=== PATIENT | male | born 1990 | race Caucasian/White ===

== ENCOUNTER 2018-05-19 19:42 | Inpatient (IN) | payer BC ==
[~2018-05-19 19:42] MED LIST: DEXAMETHASONE SOD PHOSPHATE INJ 4 MG/1 ML VIAL ONE; GLYCOPYRROLATE 1 MG/5 ML SYRINGE ONE; NEOSTIGMINE METHYLSULFATE 10 MG/10 ML VIAL ONE; ONDANSETRON HCL INJ/PF 4 MG/2 ML SDV ONE
[2018-05-19] MEDS ORDERED: NORMAL SALINE 1000 ML 1,000 ML IV ONE (20:19)
[2018-05-19 20:49] LABS: ABSOLUTE LYMPHOCYTES (AUTO) 0.7 10^3/uL (0.5-4.7); ABSOLUTE MONOCYTES (AUTO) 0.2 10^3/uL (0.1-1.4); ABSOLUTE NEUT (AUTO) 3.2 10^3/uL (1.7-8.2); BASOPHILS % (AUTO) 0.5 % (0-2); EOSINOPHILS % (AUTO) 0.7 % (0-6); HEMATOCRIT 43.3 % (37.9-51.0); LYMPHOCYTES % (AUTO) 17.3 % (13-45); MEAN CORPUSCULAR HEMOGLOBIN 33.9 pg (27.0-33.4); MEAN CORPUSCULAR HGB CONC 34.6 g/dL (32.0-36.0); MEAN CORPUSCULAR VOLUME 98 fl (80-97); MONOCYTES % (AUTO) 4.6 % (3-13); PLATELET COUNT 346 10^3/uL (150-450); RED BLOOD COUNT 4.43 10^6/uL (4.35-5.55); RED CELL DISTRIBUTION WIDTH 12.6 % (11.5-14.0); SEGMENTED NEUTROPHILS % (AUTO) 76.9 % (42-78); TOTAL CELLS COUNTED % (AUTO) 100 %; WHITE BLOOD COUNT 4.2 10^3/uL (4.0-10.5)
[2018-05-19] MEDS ORDERED: MORPHINE SULFATE 10 MG/ML INJ IV PRN (21:04)
[2018-05-19] MEDS ORDERED: FAMOTIDINE 20 MG TABLET PO ONE (21:05)
[2018-05-19] MEDS ORDERED: LIDOCAINE 2% VISCOUS SOLN 20 ML UDCUP PO ONE (21:05)
[2018-05-19] MEDS ORDERED: MAG HYDROX/AL HYDROX/SIMETH SUSP 30 ML UDCUP PO ONE (21:05)
[2018-05-19] MEDS ORDERED: METOCLOPRAMIDE HCL ORAL SOLN 10 MG/10 ML UDCUP PO ONE (21:05)
[2018-05-19] MEDS ORDERED: METOCLOPRAMIDE HCL INJ/PF 10 MG/2 ML SDV IV ONE (21:05)
[2018-05-19 21:06] LABS: ALANINE AMINOTRANSFERASE 34 U/L (21-72); ALBUMIN 4.7 g/dL (3.5-5.0); ALKALINE PHOSPHATASE 54 U/L (38-126); ANION GAP 14 (5-19); ASPARTATE AMINO TRANSFERASE 39 U/L (17-59); BILIRUBIN,DIRECT 0.4 mg/dL (0.0-0.4); BILIRUBIN,TOTAL 0.5 mg/dL (0.2-1.3); BLOOD UREA NITROGEN 21 mg/dL (7-20); CALCIUM 9.8 mg/dL (8.4-10.2); CARBON DIOXIDE 21 mmol/L (22-30); CHLORIDE 109 mmol/L (98-107); CREATINE KINASE 401 U/L (55-170); GLUCOSE 124 mg/dL (75-110); LIPASE 114.6 U/L (23-300); POTASSIUM 3.8 mmol/L (3.6-5.0); SODIUM 143.6 mmol/L (137-145); TOTAL PROTEIN 7.3 g/dL (6.3-8.2)
--- NOTE | 2018-05-19 21:07 | ER Document Report ---
ED General - General Chief Complaint: Chest Pain Stated Complaint: CHEST PAIN Time Seen by Provider: 05/19/18 20:18 Notes: Patient is a 27-year-old male with a past medical history of chronic low back pain, currently takes approximately 3000 mg of ibuprofen daily for at least the past 3-4 months for low back pain who presents with acute onset of severe, generalized abdominal pain. The patient reports that this pain started abruptly several hours prior to arrival and has been getting progressively worse since that time. Any movement or touching the area worsens the pain. Nothing improves the pain. He denies any history of similar symptoms in the past. He has not seen his general doctor regarding today's concerns. He notes that he has been nauseated but has not vomited. He denies any melanotic stools. History is otherwise limited secondary to the patient's degree of pain. - Related Data Allergies/Adverse Reactions: No Known Allergies Allergy (Unverified 05/20/18 02:01) Past Medical History - General Information source: Patient - Social History Smoking Status: Never Smoker Frequency of alcohol use: Occasional Drug Abuse: None Lives with: Spouse/Significant other Family History: Reviewed & Not Pertinent Review of Systems - Review of Systems Notes: Constitutional: Negative for fever. HENT: Negative for sore throat. Eyes: Negative for visual changes. Cardiovascular: Negative for chest pain. Respiratory: Negative for shortness of breath. Gastrointestinal: Positive for abdominal pain and vomiting Genitourinary: Negative for dysuria. Musculoskeletal: Negative for back pain. Skin: Negative for rash. Neurological: Negative for headaches, weakness or numbness. 10 point ROS negative except as marked above and in HPI. Physical Exam - Vital signs Vitals: Temp Pulse Resp BP Pulse Ox 97.6 F 68 16 131/82 H 100 05/19/18 20:10 05/19/18 20:10 05/19/18 20:10 05/19/18 20:10 05/19/18 20:10 Interpretation: Normal Notes: PHYSICAL EXAMINATION: GENERAL: Appears to be in significant pain HEAD: Atraumatic, normocephalic. EYES: Pupils equal round and reactive to light, extraocular movements intact, sclera anicteric, conjunctiva are normal. ENT: nares patent, oropharynx clear without exudates. Moist mucous membranes. NECK: Normal range of motion, supple without lymphadenopathy LUNGS: Breath sounds clear to auscultation bilaterally and equal. No wheezes rales or rhonchi. HEART: Regular rate and rhythm without murmurs ABDOMEN: Firm, rigid abdomen. Diffuse, severe tenderness to palpation with involuntary guarding EXTREMITIES: Normal range of motion, no pitting or edema. No cyanosis. NEUROLOGICAL: No focal neurological deficits. Moves all extremities spontaneously and on command. PSYCH: Anxious, somewhat hostile demeanor SKIN: Warm, Dry, normal turgor, no rashes or lesions noted. Course - Re-evaluation Re-evalutation: 05/19/18 21:06 Patient presents complaining of generalized abdominal pain, nausea, no vomiting. Abdominal exam is somewhat limited as patient has severe tenderness with involuntary guarding in all locations but the initial exam is worrisome for an acute abdomen. His vitals are otherwise within normal limits, initial labs are noted to be unremarkable. The patient does take over 3000 mg of ibuprofen every day and has been doing so for months. He denies any recent melanotic stools. A consideration would certainly be possible perforated viscus given his degree of abdominal pain and the acute onset of his symptoms. Alternative consideration could be a severe gastritis or duodenitis although it would be unusual the patient have such significant generalized abdominal tenderness. Will proceed with an acute abdominal series initially to evaluate for any evidence of perforation, bedside ultrasound, pain control and reassess the patient. 05/19/18 21:43 Acute abdominal series does show free air in the abdomen extraordinarily concerning for a perforated viscus. I immediately contacted Dr. Varela the surgeon bloom conveyor operator who will come to the bedside and plans to take patient to the operating room. He has been made n.p.o., IV Zosyn has been initiated, IV fluids and morphine for pain control. I have updated the patient and his family at the bedside and have reviewed the radiographic images with him and explained the implications of this diagnosis. 05/19/18 22:29 Patient continues to have significant pain. Dr. Davis has evaluated and will take to the operating room. Patient has received a total of 12 mg of morphine without significant relief. Will give 1 mg of hydromorphone at this time point. He remains hemodynamically within normal limits all his abdominal exam remains rigid 05/19/18 23:21 Patient's pain is much improved. He is going to the operating room at this time point 05/20/18 02:33 - Vital Signs Vital signs: Temp Pulse Resp BP Pulse Ox 98.1 F 88 16 144/91 H 100 05/20/18 01:27 05/20/18 01:27 05/20/18 01:27 05/20/18 01:27 05/20/18 01:27 - Laboratory Result Diagrams: 05/19/18 20:34 05/19/18 20:34 Laboratory results interpreted by me: 05/19/18 05/19/18 20:34 20:34 MCV 98 H MCH 33.9 H Chloride 109 H Carbon Dioxide 21 L BUN 21 H Glucose 124 H Creatine Kinase 401 H - Diagnostic Test Radiology reviewed: Image reviewed, Reports reviewed Radiology results interpreted by me: 05/19/18 21:43 Acute abdominal series: Free air in the abdomen Critical Care Note - Critical Care Note Total time excluding time spent on procedures (mins): 36 Comments: Critical care time spent obtaining history from patient or surrogate, discussions with consultants, development of treatment plan with patient or surrogate, evaluation of patient's response to treatment, examination of patient , ordering and performing treatments and interventions, ordering and review of laboratory studies, re-evaluation of patient's condition, ordering and review of radiographic studies and review of old charts Discharge - Discharge Clinical Impression: Perforated viscus, Free intraperitoneal air, Nausea, Acute abdomen Condition: Critical Disposition: ADMITTED INPATIENT Admitting Provider: Surgicalist Unit Admitted: OR
[2018-05-19] MEDS ORDERED: PIPERACILLIN/TAZOBACTAM 3.375 GM VIAL IV ONE (21:38)
[2018-05-19] MEDS ORDERED: MORPHINE SULFATE 10 MG/ML INJ IV ONE (21:57)
--- NOTE | 2018-05-19 22:20 | RADIOLOGY REPORT (SQ) ---
EXAM DESCRIPTION: ACUTE ABDOMEN SERIES COMPLETED DATE/TIME: 05/19/2018 9:43 pm REASON FOR STUDY: abdominal pain, possible perforation . History of NSAIDS use. COMPARISON: None. NUMBER OF VIEWS: Three views. TECHNIQUE: Frontal chest, supine abdomen and upright/decubitus abdomen radiographic images acquired. LIMITATIONS: None. FINDINGS: CHEST: No consolidation, pleural effusion or pneumothorax. Radiopaque piercing noted at t he bilateral nipple regions. FREE AIR: Linear lucencies under the diaphragm, suggestive of small pneumoperitoneum. BOWEL GAS PATTERN: Nonobstructive pattern. No dilated loops or air fluid levels. CALCIFICATIONS: No suspicious calcifications. HARDWARE: None in the abdomen. SOFT TISSUES: No gross mass or suggestion of organomegaly. BONES: No acute findings. IMPRESSION: 1. Nonobstructive bowel gas pattern. 2. Small pneumoperitoneum. COMMENT: Pertinent positive or negative findings of the imaging study reported as a CRITICAL EXAM to MONY Spring, at22:18 hours on 05/19/2018.Category of Critical Exam: Pneumoperitoneum. TECHNICAL DOCUMENTATION: JOB ID: [id number] [employer]- All Rights Reserved Reading location - IP/workstation name: [email or web address]
[2018-05-19] MEDS ORDERED: HYDROMORPHONE HCL INJ/PF 2 MG/ML AMPULE IV PRN (22:29)
[2018-05-19] MEDS ORDERED: HYDROMORPHONE HCL INJ/PF 2 MG/ML AMPULE ONE (22:31)
--- NOTE | 2018-05-19 22:44 | PDOC H&P ---
History of Present Illness Admission Date/PCP: 05/19/18 21:57 Patient complains of: severe abdominal pains History of Present Illness: JAZMIN DOWNEY is a 27 year old male who c/o severe abdominal pains at around 4 pm today. Has associated nausea. Obstruction series in the ED showed free air under the diaphragm. Has been taking at least 3 gms Ibuprofen for about 4-5 months for back pains. Past Surgical History Past Surgical History: Reports: Orthopedic Surgery - back surgery Social History Smoking Status: Unknown if Ever Smoked Family History Parental Family History Reviewed: Yes Children Family History Reviewed: No Sibling(s) Family History Reviewed.: No Review of Systems Constitutional: PRESENT: fever(s) Eyes: PRESENT: other - no visual/hearing changes Cardiovascular: PRESENT: other - no chest pains/cough Gastrointestinal: PRESENT: abdominal pain, nausea Genitourinary: PRESENT: other - no dysuria Musculoskeletal: PRESENT: back pain Neurological: PRESENT: other - no seizure Psychiatric: PRESENT: anxiety Hematologic/Lymphatic: PRESENT: other - no easy bruising Physical Exam Vital Signs: Temp Pulse Resp BP Pulse Ox 97.6 F 68 16 131/82 H 100 05/19/18 20:10 05/19/18 20:10 05/19/18 20:10 05/19/18 20:10 05/19/18 20:10 General appearance: PRESENT: severe distress Head exam: PRESENT: atraumatic Eye exam: PRESENT: conjunctiva pink Mouth exam: PRESENT: dry mucosa Neck exam: PRESENT: full ROM Respiratory exam: PRESENT: clear to auscultation jennifer Cardiovascular exam: PRESENT: tachycardia Pulses: PRESENT: normal radial pulses Vascular exam: PRESENT: normal capillary refill GI/Abdominal exam: PRESENT: firm, guarding, tenderness Rectal exam: PRESENT: deferred Extremities exam: PRESENT: full ROM Musculoskeletal exam: PRESENT: ambulatory Neurological exam: PRESENT: alert, oriented to person, oriented to place, oriented to time, oriented to situation Psychiatric exam: PRESENT: anxious Skin exam: PRESENT: normal color, warm Results Impressions: Acute Abdomen Series 05/19/18 21:03 IMPRESSION: 1. Nonobstructive bowel gas pattern. 2. Small pneumoperitoneum. Assessment & Plan - Time Time Spent: 30 to 50 Minutes - Inpatient Certification Medical Necessity: Need Close Monitoring Due to Risk of Patient Decompensation, Need For IV Fluids, Need for Pain Control, Need for IV Antibiotics, Need for Surgery, Risk of Complication if Not Cared For in Hospital - Plan Summary Plan Summary: HYdrate IV antibiotics To OR for explore lap and repair of perforation DAREN
[2018-05-19] MEDS ORDERED: HYDROMORPHONE HCL INJ/PF 2 MG/ML AMPULE IV ONE (22:47)
[2018-05-19] MEDS ORDERED: FENTANYL CITRATE INJ/PF 100 MCG/2 ML AMPUL ONE ×2 (23:04)
[2018-05-19] MEDS ORDERED: MIDAZOLAM 2 MG/2 ML INJ ONE (23:04)
[2018-05-19] MEDS ORDERED: EPHEDRINE SULFATE INJ 50 MG/1 ML AMPULE ONE (23:05)
[2018-05-19] MEDS ORDERED: ACETAMINOPHEN 1,000 MG/100 ML RTUPB IV ONE (23:05)
[2018-05-19] MEDS ORDERED: PROPOFOL INJ 200 MG/20 ML VIAL IV ONE (23:05)
[2018-05-19] MEDS ORDERED: MORPHINE SULFATE 10 MG/ML INJ ONE (23:06)
[2018-05-20] MEDS ORDERED: DIPHENHYDRAMINE HCL 50 MG/ML VIAL IV PRN (00:46)
[2018-05-20] MEDS ORDERED: PROMETHAZINE HCL INJ 25 MG/1 ML VIAL IV PRN (00:46)
[2018-05-20] MEDS ORDERED: FENTANYL CITRATE INJ/PF 100 MCG/2 ML AMPUL IV PRN ×3 (00:46)
[2018-05-20] MEDS ORDERED: MEPERIDINE HCL/PF INJ 25 MG/1 ML DISP.SYRIN IV PRN (00:46)
[2018-05-20] MEDS ORDERED: ONDANSETRON HCL INJ/PF 4 MG/2 ML SDV IV PRN (01:27)
[2018-05-20] MEDS ORDERED: DEXTROSE 50%-WATER 25 GM/50 ML DISP.SYRIN IV PRN ×2 (01:27)
[2018-05-20] MEDS ORDERED: DEXTROSE 40% GEL 15 GM TUBE PO PRN ×2 (01:27)
[2018-05-20] MEDS ORDERED: GLUCAGON,HUMAN RECOMB 1 MG INJ SUBCUT PRN (01:27)
[2018-05-20] MEDS ORDERED: PHARMACY COMMUNICATION ORDER MC NR (01:30)
[2018-05-20] MEDS ORDERED: FENTANYL CITRATE INJ/PF 100 MCG/2 ML AMPUL ONE (02:05)
[2018-05-20] MEDS ORDERED: PIPERACILLIN/TAZOBACTAM 3.375 GM VIAL IV PRN (02:58)
--- NOTE | 2018-05-20 03:02 | RADIOLOGY REPORT (SQ) ---
EXAM DESCRIPTION: XR ABDOMEN 1 VIEW (KUB) COMPLETED DATE/TME: 05/20/2018 01:31 CLINICAL HISTORY: 27 years, Male, Check Placement of NG Tube COMPARISON: None. NUMBER OF VIEWS: 1 LIMITATIONS: None. FINDINGS: Enteric tube appears adequate with tip in proximal port at the left upper abdominal quadrant. Midline surgical clips. Additional two catheter tubes overlying bilateral mid abdomen. Paucity of bowel gas. No suspicious calcification. Grossly intact skeletal structures. IMPRESSION: No acute findings.
[2018-05-20] MEDS: MORPHINE SULFATE 10 MG/ML INJ IV PRN ×5 (03:36→20:26)
[2018-05-20] MEDS: NORMAL SALINE 1000 ML 1,000 ML IV PRN ×2 (03:41→11:06)
[2018-05-20] MEDS ORDERED: MORPHINE SULFATE 10 MG/ML INJ IV PRN (05:37)
[2018-05-20] MEDS ORDERED: PIPERACILLIN/TAZOBACTAM 3.375 GM VIAL IV SCH (06:00)
[2018-05-20 06:01] LABS: ANION GAP 10 (5-19); BLOOD UREA NITROGEN 17 mg/dL (7-20); CALCIUM 8.6 mg/dL (8.4-10.2); CARBON DIOXIDE 18 mmol/L (22-30); CHLORIDE 115 mmol/L (98-107); GLUCOSE 113 mg/dL (75-110); POTASSIUM 4.3 mmol/L (3.6-5.0); SODIUM 142.7 mmol/L (137-145)
[2018-05-20 06:05] LABS: HEMATOCRIT 39.6 % (37.9-51.0); HEMOGLOBIN 13.4 g/dL (13.5-17.0); MEAN CORPUSCULAR HEMOGLOBIN 33.4 pg (27.0-33.4); MEAN CORPUSCULAR HGB CONC 33.9 g/dL (32.0-36.0); MEAN CORPUSCULAR VOLUME 98 fl (80-97); PLATELET COUNT 283 10^3/uL (150-450); RED BLOOD COUNT 4.03 10^6/uL (4.35-5.55); RED CELL DISTRIBUTION WIDTH 12.8 % (11.5-14.0)
[2018-05-20] MEDS ORDERED: PIPERACILLIN/TAZOBACTAM 3.375 GM VIAL IV ONE (06:36)
[2018-05-20] MEDS: PIPERACILLIN SODIUM/TAZOBACTAM 3.375 GM in NORMAL SALINE 100 ML IV SCH ×4 (07:31→23:28)
[2018-05-20 07:40] LABS: ABSOLUTE LYMPHOCYTES# (MANUAL) 0.3 10^3/uL (0.5-4.7); ABSOLUTE MONOCYTES # (MANUAL) 0.2 10^3/uL (0.1-1.4); ABSOLUTE NEUTROPHILS# (MANUAL) 3.4 10^3/uL (1.7-8.2); BASOPHILS % (MANUAL) 0 % (0-2); EOSINOPHILS % (MANUAL) 0 % (0-6); LYMPHOCYTES % (MANUAL) 7 % (13-45); MONOCYTES % (MANUAL) 6 % (3-13); SEGMENTED NEUTROPHILS % (MAN) 46 % (42-78); TOTAL CELLS COUNTED 100
--- NOTE | 2018-05-20 07:40 | OPERATIVE REPORT E ---
Operative Report NAME: JAZMIN DOWNEY : 1990 AGE: 27Y DATE OF SURGERY: 05/20/2018 ROOM: 318 PREOPERATIVE DIAGNOSIS: Perforated bowel. POSTOPERATIVE DIAGNOSIS: Perforated duodenal ulcer with peritonitis. PROCEDURES DONE: Exploratory laparotomy, repair of duodenal perforation with omental patch. SURGEON: NATALIIA HASSAN M.D. ANESTHESIA: General. INDICATIONS: This is a 27-year-old male who has been taking ibuprofen at least 3 grams a day for the past 4-5 months for back pains. On 05/19/2018, around 4:00 p.m., noted to have severe abdominal pains with nausea and went to the ED where obstruction series revealed free air in the abdominal cavity. The patient was then taken to the OR emergently. DESCRIPTION OF PROCEDURE: After adequate general anesthesia, the patient was placed in supine position and a Rinaldi catheter was then inserted. The abdomen was then prepped and draped in the usual sterile fashion. Appropriate timeout was then called. A midline incision was then made from the xiphoid down to just below the umbilicus. The fascia was then opened and some air in the abdominal cavity noted to gush out. The abdomen noted to have gastric fluid with some areas of formed exudate. The Bookwalter retractor was then placed and the abdominal cavity explored. There was a perforation right at the anterior aspect of the first portion of the duodenum about 8 mm in diameter. Three simple sutures of 2-0 silk were used to close the perforation. Following this, the abdominal cavity was then copiously irrigated of 6 L of saline. The small bowel was checked from the ligament of Treitz down to the cecum and no evidence of abnormality noted and no evidence of collection in between the loops. All the 4 quadrants of the abdomen were then copiously irrigated. Following this, a piece of omentum was then sutured around the area of the repaired perforation using 4 sutures of 2-0 Vicryl. Next, a couple of drains were placed through stab wounds in the right upper quadrant and left upper quadrant areas. The drains were placed towards the area of the inferior aspect of the perforation towards the area of the foramen of [place] and the left side placed over the repair site. Both drains were cut short with the right drain about 2 inches and the left drain about 3 inches. The drains were then anchored to the skin with 2-0 silk. Next, the fascia was then reapproximated using #1 PDS single strand starting at the bottom part and another one starting at the xiphoid area and with 2 sutures meeting at the mid part and tying together. The subcu was then irrigated with saline solution and the skin reapproximated with loulou. Sterile dressing was placed over the operative site. Needle, instrument, and sponge count were all corrected, and estimated blood loss was about 30 mL. The patient was then brought to the recovery room in guarded condition. DICTATING PHYSICIAN: NATALIIA HASSAN M.D. [id number] PHY#: [id number] ID: [id number] JOB#: [id number] ACCT: [id number] cc:NATALIIA HASSAN M.D. >
[2018-05-20 07:41] LABS: BAND NEUTROPHILS % (MANUAL) 40 % (3-5)
[2018-05-20 07:43] LABS: PLATELET COMMENT ADEQUATE; POLYCHROMASIA SLIGHT; TOXIC GRANULATION SLIGHT; TOXIC VACUOLATION PRESENT
--- NOTE | 2018-05-20 10:56 | PDOC PROGRESS REPORT ---
Subjective Subjective:: Patient states pain adequately controlled. Reason For Visit: PERFORATED DUODENAL ULCER WITH PERITONITIS Physical Exam Vital Signs: Temp Pulse Resp BP Pulse Ox 97.6 F 93 18 117/62 95 05/20/18 07:35 05/20/18 07:35 05/20/18 07:35 05/20/18 07:35 05/20/18 07:35 Intake & Output 05/19/18 05/20/18 05/21/18 06:59 06:59 06:59 Intake Total 7700 Output Total 5776 65 Balance 1974 Weight 75 kg General appearance: PRESENT: no acute distress GI/Abdominal exam: PRESENT: other - Dressing dry, intact; drains with serosanguineous discharge, bulbs compressed. Results Laboratory Results: 05/20/18 05:25 05/20/18 05:25 05/20/18 05/20/18 05:25 05:25 WBC 4.0 RBC 4.03 L Hgb 13.4 L Hct 39.6 MCV 98 H MCH 33.4 MCHC 33.9 RDW 12.8 Plt Count 283 Seg Neutrophils % Not Reportable Lymphocytes % Not Reportable Monocytes % Not Reportable Eosinophils % Not Reportable Basophils % Not Reportable Absolute Neutrophils Not Reportable Absolute Lymphocytes Not Reportable Absolute Monocytes Not Reportable Absolute Eosinophils Not Reportable Absolute Basophils Not Reportable Sodium 142.7 Potassium 4.3 Chloride 115 H Carbon Dioxide 18 L Anion Gap 10 BUN 17 Creatinine 0.91 Est GFR ( Amer) > 60 Est GFR (Non-Af Amer) > 60 Glucose 113 H Calcium 8.6 Impressions: Acute Abdomen Series 05/19/18 21:03 IMPRESSION: 1. Nonobstructive bowel gas pattern. 2. Small pneumoperitoneum. KUB X-Ray 05/20/18 01:31 IMPRESSION: No acute findings. Assessment & Plan - Diagnosis (1) Perforated viscus Is this a current diagnosis for this admission?: Yes Plan: Patient is one day status post exploratory laparotomy, oversewing of needed duodenal ulcer with Aba patch; no immediate postoperative complications. Her graft Recommendations: 1. We will discontinue Rinaldi catheter 2. Start intravenous acetaminophen and intravenous Toradol 3. Leave NG tube and drains in position. 3. Ambulate patient in hallways.
[2018-05-20] MEDS: PANTOPRAZOLE SODIUM 40 MG VIAL IV SCH ×2 (10:58→21:37)
[2018-05-20] MEDS: ENOXAPARIN SODIUM INJ 40 MG/0.4 ML DISP.SYRIN SUBCUT SCH (10:59)
[2018-05-20] MEDS: KETOROLAC TROMETHAMINE INJ/PF 30 MG/1 ML SDV IV PRN (12:44)
[2018-05-20] MEDS: ACETAMINOPHEN INJ/PF 1000 MG/100 ML SDV IV SCH ×3 (14:43→23:27)
[2018-05-20] MEDS: NICOTINE 21 MG/24 HR PATCH.TD24 TD SCH (20:24)
[2018-05-21] MEDS: NORMAL SALINE 1000 ML 1,000 ML IV PRN ×2 (03:03→09:59)
[2018-05-21] MEDS: KETOROLAC TROMETHAMINE INJ/PF 30 MG/1 ML SDV IV PRN ×3 (04:48→21:10)
[2018-05-21] MEDS: PIPERACILLIN SODIUM/TAZOBACTAM 3.375 GM in NORMAL SALINE 100 ML IV SCH ×3 (05:01→18:23)
[2018-05-21] MEDS: ACETAMINOPHEN INJ/PF 1000 MG/100 ML SDV IV SCH ×4 (05:07→23:28)
[2018-05-21 05:25] LABS: ABSOLUTE EOSINOPHILS # (AUTO) 0.2 10^3/uL (0.0-0.6); ABSOLUTE LYMPHOCYTES (AUTO) 0.9 10^3/uL (0.5-4.7); ABSOLUTE MONOCYTES (AUTO) 0.7 10^3/uL (0.1-1.4); ABSOLUTE NEUT (AUTO) 5.9 10^3/uL (1.7-8.2); BASOPHILS % (AUTO) 0.2 % (0-2); EOSINOPHILS % (AUTO) 2.5 % (0-6); LYMPHOCYTES % (AUTO) 11.6 % (13-45); MEAN CORPUSCULAR HEMOGLOBIN 33.8 pg (27.0-33.4); MEAN CORPUSCULAR HGB CONC 34.3 g/dL (32.0-36.0); MEAN CORPUSCULAR VOLUME 98 fl (80-97); MONOCYTES % (AUTO) 9.3 % (3-13); PLATELET COUNT 260 10^3/uL (150-450); RED BLOOD COUNT 3.36 10^6/uL (4.35-5.55); RED CELL DISTRIBUTION WIDTH 12.6 % (11.5-14.0); SEGMENTED NEUTROPHILS % (AUTO) 76.4 % (42-78); TOTAL CELLS COUNTED % (AUTO) 100 %; WHITE BLOOD COUNT 7.8 10^3/uL (4.0-10.5)
[2018-05-21 05:56] LABS: HEMOGLOBIN 11.3 g/dL (13.5-17.0)
[2018-05-21 05:59] LABS: ANION GAP 7 (5-19); BLOOD UREA NITROGEN 18 mg/dL (7-20); CALCIUM 8.6 mg/dL (8.4-10.2); CARBON DIOXIDE 23 mmol/L (22-30); CHLORIDE 111 mmol/L (98-107); GLUCOSE 75 mg/dL (75-110); POTASSIUM 3.7 mmol/L (3.6-5.0); SODIUM 141.2 mmol/L (137-145)
[2018-05-21] MEDS: PANTOPRAZOLE SODIUM 40 MG VIAL IV SCH ×2 (09:46→21:07)
[2018-05-21] MEDS: MORPHINE SULFATE 10 MG/ML INJ IV PRN ×3 (09:48→18:19)
[2018-05-21] MEDS: ENOXAPARIN SODIUM INJ 40 MG/0.4 ML DISP.SYRIN SUBCUT SCH (09:49)
--- NOTE | 2018-05-21 15:36 | PDOC PROGRESS REPORT ---
Subjective Progress Note for:: 05/21/18 Subjective:: Less incisional pains Reason For Visit: PERFORATED DUODENAL ULCER WITH PERITONITIS Physical Exam Vital Signs: Temp Pulse Resp BP Pulse Ox 98.5 F 74 18 133/60 H 98 05/21/18 07:33 05/21/18 07:33 05/21/18 07:33 05/21/18 07:33 05/21/18 07:33 Intake & Output 05/20/18 05/21/18 05/22/18 06:59 06:59 06:59 Intake Total 7700 2959 0 Output Total 5725 1485 300 Balance 1974 1474 -300 Weight 75 kg 72.5 kg Exam: NGT draining small amount Abd soft with no bowel sounds Results Laboratory Results: 05/21/18 04:32 05/21/18 04:32 05/21/18 05/21/18 04:32 04:32 WBC 7.8 RBC 3.36 L Hgb 11.3 L D Hct 33.0 L MCV 98 H MCH 33.8 H MCHC 34.3 RDW 12.6 Plt Count 260 Seg Neutrophils % 76.4 Lymphocytes % 11.6 L Monocytes % 9.3 Eosinophils % 2.5 Basophils % 0.2 Absolute Neutrophils 5.9 Absolute Lymphocytes 0.9 Absolute Monocytes 0.7 Absolute Eosinophils 0.2 Absolute Basophils 0.0 Sodium 141.2 Potassium 3.7 Chloride 111 H Carbon Dioxide 23 Anion Gap 7 BUN 18 Creatinine 0.98 Est GFR ( Amer) > 60 Est GFR (Non-Af Amer) > 60 Glucose 75 Calcium 8.6 Impressions: Acute Abdomen Series 05/19/18 21:03 IMPRESSION: 1. Nonobstructive bowel gas pattern. 2. Small pneumoperitoneum. KUB X-Ray 05/20/18 01:31 IMPRESSION: No acute findings. Assessment & Plan - Time Time Spent with patient: 15-24 minutes - Plan Summary Plan Summary: Only POD 2. Keep NGT Continue antibiotics
[2018-05-21] MEDS: NICOTINE 21 MG/24 HR PATCH.TD24 TD SCH (22:52)
[2018-05-22] MEDS: MORPHINE SULFATE 10 MG/ML INJ IV PRN ×4 (00:30→18:51)
[2018-05-22] MEDS: PIPERACILLIN SODIUM/TAZOBACTAM 3.375 GM in NORMAL SALINE 100 ML IV SCH ×4 (00:32→17:47)
[2018-05-22] MEDS: NORMAL SALINE 1000 ML 1,000 ML IV PRN ×2 (05:32→19:16)
[2018-05-22] MEDS: ACETAMINOPHEN INJ/PF 1000 MG/100 ML SDV IV SCH ×3 (06:10→18:50)
[2018-05-22] MEDS: KETOROLAC TROMETHAMINE INJ/PF 30 MG/1 ML SDV IV PRN ×3 (07:46→20:17)
[2018-05-22] MEDS: PANTOPRAZOLE SODIUM 40 MG VIAL IV SCH ×2 (11:24→21:34)
[2018-05-22] MEDS: ENOXAPARIN SODIUM INJ 40 MG/0.4 ML DISP.SYRIN SUBCUT SCH (11:24)
--- NOTE | 2018-05-22 12:42 | PDOC PROGRESS REPORT ---
Subjective Progress Note for:: 05/22/18 Subjective:: Passed flatus Reason For Visit: PERFORATED DUODENAL ULCER WITH PERITONITIS Physical Exam Vital Signs: Temp Pulse Resp BP Pulse Ox 97.8 F 74 18 134/74 H 100 05/22/18 11:51 05/22/18 11:51 05/22/18 11:51 05/22/18 11:51 05/22/18 11:51 Intake & Output 05/21/18 05/22/18 05/23/18 06:59 06:59 06:59 Intake Total 2959 2701 Output Total 1485 1125 180 Balance 1474 1576 -180 Weight 72.5 kg 78 kg Exam: abd is soft with minimal tenderness along incision site Need to check NGT. Drained about 800 ccs from yesterday Results Laboratory Results: 05/21/18 04:32 05/21/18 04:32 Impressions: Acute Abdomen Series 05/19/18 21:03 IMPRESSION: 1. Nonobstructive bowel gas pattern. 2. Small pneumoperitoneum. KUB X-Ray 05/20/18 01:31 IMPRESSION: No acute findings. Assessment & Plan - Time Time Spent with patient: 15-24 minutes - Plan Summary Plan Summary: Check NGT drainage today for possible D/C NGT Continue IV antibiotics
[2018-05-22 18:04] LABS: ABSOLUTE EOSINOPHILS # (AUTO) 0.3 10^3/uL (0.0-0.6); ABSOLUTE LYMPHOCYTES (AUTO) 1.4 10^3/uL (0.5-4.7); ABSOLUTE MONOCYTES (AUTO) 0.6 10^3/uL (0.1-1.4); ABSOLUTE NEUT (AUTO) 6.1 10^3/uL (1.7-8.2); BASOPHILS % (AUTO) 0.3 % (0-2); EOSINOPHILS % (AUTO) 3.4 % (0-6); HEMATOCRIT 34.5 % (37.9-51.0); HEMOGLOBIN 11.6 g/dL (13.5-17.0); LYMPHOCYTES % (AUTO) 16.7 % (13-45); MEAN CORPUSCULAR HEMOGLOBIN 33.5 pg (27.0-33.4); MEAN CORPUSCULAR HGB CONC 33.6 g/dL (32.0-36.0); MEAN CORPUSCULAR VOLUME 100 fl (80-97); MONOCYTES % (AUTO) 6.9 % (3-13); PLATELET COUNT 319 10^3/uL (150-450); RED BLOOD COUNT 3.46 10^6/uL (4.35-5.55); RED CELL DISTRIBUTION WIDTH 12.7 % (11.5-14.0); SEGMENTED NEUTROPHILS % (AUTO) 72.7 % (42-78); TOTAL CELLS COUNTED % (AUTO) 100 %; WHITE BLOOD COUNT 8.3 10^3/uL (4.0-10.5)
[2018-05-22 18:17] LABS: ANION GAP 14 (5-19); BLOOD UREA NITROGEN 19 mg/dL (7-20); CALCIUM 8.9 mg/dL (8.4-10.2); CARBON DIOXIDE 23 mmol/L (22-30); CHLORIDE 108 mmol/L (98-107); GLUCOSE 65 mg/dL (75-110); POTASSIUM 3.4 mmol/L (3.6-5.0); SODIUM 144.9 mmol/L (137-145)
[2018-05-22] MEDS: NICOTINE 21 MG/24 HR PATCH.TD24 TD SCH (20:46)
[2018-05-22] MEDS ORDERED: POTASSI CL 20 MEQ/50 ML RIDER 20 MEQ/50 ML RTUPB IV ONE (22:00)
[2018-05-23] MEDS: PIPERACILLIN SODIUM/TAZOBACTAM 3.375 GM in NORMAL SALINE 100 ML IV SCH ×2 (00:08→06:05)
[2018-05-23] MEDS: MORPHINE SULFATE 10 MG/ML INJ IV PRN ×4 (00:08→20:55)
[2018-05-23] MEDS: ACETAMINOPHEN INJ/PF 1000 MG/100 ML SDV IV SCH ×3 (00:16→11:55)
[2018-05-23] MEDS: KETOROLAC TROMETHAMINE INJ/PF 30 MG/1 ML SDV IV PRN (06:05)
[2018-05-23] MEDS: NORMAL SALINE 1000 ML 1,000 ML IV PRN ×3 (06:26→23:17)
--- NOTE | 2018-05-23 07:37 | EKG REPORT ---
SEVERITY:- BORDERLINE ECG - SINUS RHYTHM LVH BY VOLTAGE : Confirmed by: Betsy Goss MD 23-May-2018 07:37:28
[2018-05-23] MEDS: ENOXAPARIN SODIUM INJ 40 MG/0.4 ML DISP.SYRIN SUBCUT SCH (09:40)
[2018-05-23] MEDS: PANTOPRAZOLE SODIUM 40 MG VIAL IV SCH ×2 (09:40→21:41)
[2018-05-23] MEDS: HYDROCODONE/ACETAMINOPHEN 10-325 MG TABLET PO PRN ×3 (12:36→23:16)
--- NOTE | 2018-05-23 16:48 | PDOC PROGRESS REPORT ---
Subjective Reason For Visit: PERFORATED DUODENAL ULCER WITH PERITONITIS Physical Exam Vital Signs: Temp Pulse Resp BP Pulse Ox 97.9 F 78 16 128/74 H 100 05/23/18 15:26 05/23/18 15:26 05/23/18 15:26 05/23/18 15:26 05/23/18 15:26 Intake & Output 05/22/18 05/23/18 05/24/18 06:59 06:59 06:59 Intake Total 2701 2696 591 Output Total 1125 2350 850 Balance 1576 346 -259 Weight 78 kg 78.5 kg Results Laboratory Results: 05/22/18 17:50 05/22/18 17:50 05/22/18 05/22/18 17:50 17:50 WBC 8.3 RBC 3.46 L Hgb 11.6 L Hct 34.5 L MCV 100 H MCH 33.5 H MCHC 33.6 RDW 12.7 Plt Count 319 Seg Neutrophils % 72.7 Lymphocytes % 16.7 Monocytes % 6.9 Eosinophils % 3.4 Basophils % 0.3 Absolute Neutrophils 6.1 Absolute Lymphocytes 1.4 Absolute Monocytes 0.6 Absolute Eosinophils 0.3 Absolute Basophils 0.0 Sodium 144.9 Potassium 3.4 L Chloride 108 H Carbon Dioxide 23 Anion Gap 14 BUN 19 Creatinine 0.93 Est GFR ( Amer) > 60 Est GFR (Non-Af Amer) > 60 Glucose 65 L Calcium 8.9 Magnesium 2.1 05/20/18 00:16 Perineum Gram Stain - Final 05/20/18 00:16 Perineum Wound Culture - Final NO AEROBIC OR ANAEROBIC ORGANISMS RECOVERED Impressions: Acute Abdomen Series 05/19/18 21:03 IMPRESSION: 1. Nonobstructive bowel gas pattern. 2. Small pneumoperitoneum. KUB X-Ray 05/20/18 01:31 IMPRESSION: No acute findings. Assessment & Plan - Diagnosis (1) Perforated duodenal ulcer Is this a current diagnosis for this admission?: Yes - Plan Summary Plan Summary: This is a 27-year-old male status post repair of a perforated duodenal ulcer. He is doing well. He tolerated sips of clears yesterday. I will start him on a full liquid diet today. Patient has serosanguineous output from his drain. Patient is afebrile. Ambulate, encouraged incentive spirometer.
[2018-05-23] MEDS: NICOTINE 21 MG/24 HR PATCH.TD24 TD SCH (21:42)
[2018-05-24] MEDS: MORPHINE SULFATE 10 MG/ML INJ IV PRN ×4 (03:24→15:29)
[2018-05-24] MEDS: NORMAL SALINE 1000 ML 1,000 ML IV PRN (05:33)
[2018-05-24] MEDS: PANTOPRAZOLE SODIUM 40 MG VIAL IV SCH (09:45)
[2018-05-24] MEDS: ENOXAPARIN SODIUM INJ 40 MG/0.4 ML DISP.SYRIN SUBCUT SCH (09:47)
[2018-05-24] MEDS: HYDROCODONE/ACETAMINOPHEN 10-325 MG TABLET PO PRN (13:16)
[2018-05-24 18:07] VITALS: BP 131/80
--- NOTE | 2018-05-25 18:15 | CONSULTATION REPORT E ---
Consultation Report NAME: JAZMIN DOWNYE : 1990 AGE: 27Y DATE: 05/23/2018 ROOM: 318 B TO: CLAUDIA HARTMANN M.D. FROM: Faheem HWANG, Requesting Physician REASON FOR CONSULTATION: Pause of 4 seconds on the patient. HISTORY OF PRESENT ILLNESS: The patient is a very healthy 27-year-old male with no past medical history who came in with abdominal pain and was diagnosed with perforated duodenal ulcer and has had surgery and surgery was uneventful. Yesterday the patient was breathing on his incentive spirometry and he did say that he did breath hard into it, and at that time he felt a little lightheaded. This correlated with a 4 second pause. The patient has no prior history of syncope or presyncope. There is no history of dizziness or lightheadedness. It was very transient and really did not bother the patient. There was no chest pain or discomfort. There was no shortness of breath. There were no palpitations. There is no presyncope or syncope. PAST MEDICAL HISTORY: Negative for any major medical illness. He has no history of hypertension or diabetes or congenital heart disease or any neurological problem or pulmonology problems. PAST SURGICAL HISTORY: Negative. ALLERGIES: The patient has no known allergies. MEDICATIONS: As per medication administration record. Medications have been reviewed by me. SOCIAL HISTORY: The patient does not smoke. There is no history of EtOH abuse. ADVANCE DIRECTIVES: The patient is a full code. His surrogate healthcare decision make is his mother. REVIEW OF SYSTEMS: CONSTITUTIONAL: Denies any fever, chills or rigors. HEAD: Denies any headaches or head injury. Transient lightheadedness when he had the pause. EYES: No history of amblyopia or diplopia. No history of amaurosis fugax. EARS: No history of hearing loss. No history of tinnitus. No history of recurrent ear infections. NOSE: No history of hay fever. No history of nosebleeds. No history of nasal polyps. MOUTH: No altered taste sensation. No ulcers in the mouth. THROAT: No odynophagia or dysphagia. No recurrent sore throats. SKIN: No pruritus. No yellowish discoloration of the skin. No history of psoriasis. No history of skin cancer. NECK: No history of painful or painless swelling of the neck. No lymphadenopathy. No goiter. LUNGS: No history of asthma or COPD. No history of wheezing. No history of symptoms suggestive of upper respiratory tract infection or lower respiratory tract infection. No history of pulmonary embolism. No history of pleuritic chest pain. No hemoptysis. No history of sleep apnea. CARDIAC: No history of hypertension. No history of congenital heart disease. No history of coronary artery disease. No history of palpitations. No madeline syncope. No history of PND, orthopnea, or leg edema. MUSCULOSKELETAL: No history of arthritis or collagen vascular disease. ENDOCRINE: No history diabetes mellitus, no history of thyroid disease. No history of polydipsia or polyuria. No history of heat or cold intolerance. RENAL: No history of chronic kidney disease, no history of symptoms of enlarged prostate. No hematuria, pyuria, or dysuria. GASTROINTESTINAL: History of abdominal pain, diagnosis of perforated ulcer. There is no prior history of GERD or jaundice or fatty food intolerance. No history of GI bleed. No history of altered bowel movements. CENTRAL NERVOUS SYSTEM: No history of TIA or CVA. No history of headaches, migraines, or seizures. PSYCHIATRIC: No history of anxiety or depression. No history of suicidal ideation. No history of homicidal ideation. VASCULAR: No history of calf or buttock claudication. No history of DVT. HEMATOLOGICAL: No history of bleeding diathesis. No history of clotting disorders. PHYSICAL EXAMINATION: GENERAL: On examination the patient is well-built and well-nourished in no acute distress. VITAL SIGNS: He is afebrile with a temperature of 98.1 degrees Fahrenheit, pulse is 72 beats per minute, blood pressure is 127/65, respirations are 14 per minute, O2 saturations are 100% on room air. HEENT: Head is atraumatic, normocephalic. Eyes: Pupils are equal, round and regular, reactive to light and accommodation. Extraocular movements are normal. There is no conjunctival pallor. There is no scleral icterus. Ears: Tympanic membranes are intact, external auditory canals are clear. Nose: There is no deviated nasal septum. There is no inflammation of the nasal mucous membrane. Mouth: Mucous membranes of the mouth are moist. Tongue is moist. There are no ulcers. There is no bleeding from the gums. Throat: There is no redness of the oropharynx. There are no exudates. SKIN: There are no skin rashes. There is no skin lesion. There is no petechiae or ecchymosis. NECK: Supple. There is no JVD. There is no lymphadenopathy. There is no goiter. Carotids are equal. There is no bruit. Trachea is central. LUNGS: Clear to auscultation and percussion. HEART: S1, S2 is heard. There is no S3 gallop. There is no S4 gallop. There is a systolic murmur in the left sternal border and the apex without radiation. There is no rub. There are no significant murmurs of MR, , AR, or TR. ABDOMEN: Soft, there is no hepatosplenomegaly. Bowel sounds are heard. The dressing is dry. EXTREMITIES: Femorals are well felt. There are no femoral bruits. Leg pulses are well felt. There is no pedal edema. There is no cyanosis or clubbing. There is no DVT or cellulitis. There is no calf tenderness. CENTRAL NERVOUS SYSTEM: The patient is conscious, awake, alert and oriented x3 with no focal deficits. PSYCHIATRIC: The patient's judgment and insight are intact. His affect is normal. DIAGNOSTICS: Reviews of the patient's EKG shows sinus rhythm, LVH by voltage, probably LVH high QRS voltage is normal for age. Review of the monitor strip shows that there is a 4 second pause with no recurrence of this. There are no ventricular or atrial arrhythmias. His KUB reported on 05/20/18 shows enteric tube appears adequate with tip at the proximal part in the left upper abdominal quadrant, midline surgical clips *------* 2 catheter tubes overlying bilateral mid abdomen, paucity of bowel gas, no suspicion of calcification. No acute findings. This was dose on 05/20. The patient's white count is 8300, hemoglobin is 11.6, hematocrit is 34.5, platelet count is 319,000. The patient's sodium is 144.9, potassium is 3.4, chloride 108, CO2 is 23. The patient's BUN is 19, creatinine is 0.93, GFR is greater than 60. His glucose is 65. Calcium is 8.9, magnesium is 2.1. His troponin I on 05/19, was less than 0.012. Note that the patient's potassium has been replaced. IMPRESSION: 1. Sinus pause, most likely secondary to high vagal tone in a young matt who was breathing under incentive spirometry which can lead to stimulation of the vagal nerve and cause high vagal tone and, hence, sinus pauses. 2. Perforated duodenal ulcer. 3. Status post abdominal surgery. 4. Hypokalemia, resolved. Would recheck the levels. RECOMMENDATIONS: At present there is no need for treatment. The patient is reassured that this pause was due to vagal phenomena. Would recommend that the patient have, as an outpatient, an echo and 24 hour Holter monitor or even a 30 day event monitor. Cardiac status at present is stable. We will sign off. Please call me if there are any other problems. The patient has been given my cell number to call me if he has any problems. TIME SPENT: The patient seen at 7 a.m. on 05/23/2018. Forty minutes spent on this patient with more than 50% of the time spent on direct patient care. His medications have been reviewed. Medical decision making at present is of moderate complexity. We will sign off the case. DICTATING PHYSICIAN: CLAUDIA HARTMANN M.D. [id number] PHY#: [id number] ID: [id number] JOB#: [id number] ACCT: [id number] cc:CLAUDIA HARTMANN M.D. >
--- NOTE | 2018-06-28 16:45 | DISCHARGE SUMMARY E ---
Discharge Summary NAME: JAZMIN DOWNEY : 1990 AGE: 27Y ADMITTED: 05/19/2018 DISCHARGED: 05/24/2018 FINAL DIAGNOSIS: PERFORATED DUODENAL ULCER. PROCEDURE DONE: Repair of perforated duodenal ulcer with omental patch 05/19/2018. SURGEON: Mason Varela MD HISTORY OF PRESENT ILLNESS: This 27-year-old male has been taking NSAIDs for the past month. He complained of severe pains in the abdomen just prior to going to the ED. In the ED, obstruction series showed free air underneath the diaphragm. He was diffusely tender in the abdomen. He was emergently taken to the OR for repair of perforated duodenal ulcer. An ulcer about 8 mm in diameter and repaired with 3 sutures of 2-0 silk and omental patch placed. HOSPITAL COURSE: Postoperatively, the patient did well. He is able to tolerate liquids on day 4 and soft diet after that. He was then discharged improved on 05/24/2018, tolerating a regular diet. The patient is to be followed up in the surgical clinic in 2 weeks. DICTATING PHYSICIAN: MASON VARELA M.D. [id number] PHY#: [id number] ID: [id number] JOB#: [id number] ACCT: [id number] cc:MASON VARELA M.D. >
== END 2018-05-24 18:36 | disposition home or self-care (01) | DRG 329 ==
LOC: ER 19:42 → EH 21:57 → 3W 05-20 02:44
PROVIDERS: ADMIT Surgery; ATTEND Surgery
PROC: 0DU907Z Supplement Duodenum with Autologous Tissue Substitute, Open Approach (ICD-10-PCS; principal; 2018-05-20)
PROC: 0D9670Z Drainage of Stomach with Drainage Device, Via Natural or Artificial Opening (ICD-10-PCS; 2018-05-20)
DX: K26.5 Chronic or unspecified duodenal ulcer with perforation (principal); K65.9 Peritonitis, unspecified; E87.6 Hypokalemia; G89.29 Other chronic pain; M54.5 Low back pain
CPT/HCPCS: 36415; 74018; 74022; 790; 80048; 80053; 82550; 83690; 83735; 84484; 85025; 87040; 87070; 87075; 87205; 93005; 93010; 94799; 96374; 96375; 99291; J0131; J1100; J1170; J1650; J1885; J2250; J2270; J2405; J2543; J2704; J2765; J3010; J3480; J3490; J7030; S0164